=== PATIENT | female | born 1960 | race Caucasian/White ===

== ENCOUNTER 2016-08-30 08:55 | Day surgery (SDC) | payer OTHER ==
[2016-08-30] MEDS ORDERED: D5 LR 1000 ML 1,000 ML IV ONE (09:00)
[2016-08-30] MEDS ORDERED: DIPRIVAN VIAL 20 ML ONE (10:01)
[2016-08-30 11:03] VITALS: BP 106/72
== END 2016-08-30 10:40 | disposition home or self-care (01) ==
LOC: SURG1 08:55
PROVIDERS: ATTEND Internal Medicine Gastroenterology
PROC: 0DB68ZX Excision of Stomach, Via Natural or Artificial Opening Endoscopic, Diagnostic (ICD-10-PCS; principal; 2016-08-30 11:00)
PROC: 0DJ08ZZ Inspection of Upper Intestinal Tract, Via Natural or Artificial Opening Endoscopic (ICD-10-PCS; principal; 2016-08-30 11:00)
DX: R10.11 Right upper quadrant pain (principal); R10.12 Left upper quadrant pain; R11.2 Nausea with vomiting, unspecified; R10.13 Epigastric pain; K21.9 Gastro-esophageal reflux disease without esophagitis; B18.2 Chronic viral hepatitis C; K20.8 Other esophagitis; K44.9 Diaphragmatic hernia without obstruction or gangrene; K29.60 Other gastritis without bleeding
CPT/HCPCS: A4217; J3490; J7120